=== PATIENT | female | born 1940 | race Caucasian/White ===

== ENCOUNTER → 2017-08-26 | Outpatient (CLI) | payer MEDICARE, OTHER ==
[~2017-08-26] MED LIST: ALL220TA PO; BUTA1CAP2 PO; CENTTAB9 PO; FLUO-1 PO; LISI-360 PO; MELA5TAB8 PO; OMEG600C2 PO; PENI500T PO; RANI150T PO; SUMA6P SQ; TEMA15 PO; TRAZ50TA78 PO
--- NOTE | 2017-08-30 10:29 | RSPPFT ---
DATE OF PROCEDURE: 08/26/17 COMMENTS: VOLUMES DYNAMIC: FVC and FEV1 normal. STATIC: TLC, FRC and RV normal. FLOWS: FEV1% and FEF 25-75 normal. DIFFUSION: Moderately reduced. FLOW VOLUME LOOP: Normal configuration. IMPRESSION: Low normal lung volumes, possibly a very mild restrictive defect but no significant airways obstruction and no improvement post-bronchodilator. There is a moderate reduction in diffusion. Clinical correlation is required.
== END ==
LOC: HRSP 09:10
PROVIDERS: ATTEND Internal Medicine
DX: J45.909 Unspecified asthma, uncomplicated (principal)
CPT/HCPCS: 94060; 94618; 94726; 94729; 95012

== ENCOUNTER 2017-12-31 03:42 | Observation (INO) ==
--- NOTE | 2017-12-31 03:53 | ED ---
HPI General Chief Complaint: Stroke Alert Stated Complaint: Stroke Alert Time Seen by Provider: 12/31/17 03:48 Source: patient and EMS Mode of arrival: EMS Limitations: no limitations History of Present Illness HPI narrative: 77-year-old female patient presents to the ER today brought in by EMS as a stroke alert, apparently was last seen normal at 10 PM, and woke up several times tonight, had appeared disoriented according to her , ataxic , slurred speech, word finding difficulties, hallucinations. She is complaining of a headache currently which is a 5 out of 10. She states she has history of previous migraine headaches. She states that she has not been feeling well, apparently is getting over gastroenteritis. She denies other issues. Related Data Home Medications Medication Instructions Recorded Confirmed aspirin [Aspir-81] 81 mg PO DAILY 12/31/17 12/31/17 atorvastatin [Lipitor] 10 mg PO DAILY 12/31/17 12/31/17 fluoxetine 80 mg PO DAILY 12/31/17 12/31/17 hydrochlorothiazide 12.5 mg PO DAILY 12/31/17 12/31/17 lisinopril 20 mg PO DAILY 12/31/17 12/31/17 Allergies Allergy/AdvReac Type Severity Reaction Status Date / Time Iodinated Contrast- Oral and Allergy Severe Anaphylaxis Unverified 12/29/16 14: 47 IV Dye Review of Systems ROS: all other systems reviewed are negative PMFSH History History Provided By: Patient Medical History Medical History HTN (hypertension) (Acute) History of hysterectomy (Acute) MRSA (methicillin resistant Staphylococcus aureus) (Acute) Migraine (Acute) UTI (urinary tract infection) (Acute) Surgical History Surgical History H/O mastectomy (Acute) Social History Social History Substance History: No History of Abuse Second Hand Smoke Exposure: No Smoking Status: Never smoker How Often Do You Have a Drink Containing Alcohol: 2 to 4 times a month Recent Travel in [facility] within the Last 8 Weeks: No Recent Out of Country Travel within the Last 8 Weeks: No Exam Narrative Exam Narrative: GENERAL: Well-developed elderly white female patient currently in mild distress. Awake and oriented 3. SKIN: Focused skin assessment warm/dry. HEAD: Atraumatic. Normocephalic. EYES: Pupils equal and round. No scleral icterus. No injection or drainage. ENT: No nasal bleeding or discharge. Mucous membranes pink and moist. NECK: Trachea midline. No JVD. CARDIOVASCULAR: Regular rate and rhythm. No murmur appreciated. RESPIRATORY: No accessory muscle use. Clear to auscultation. Breath sounds equal bilaterally. GASTROINTESTINAL: Abdomen soft, non-tender, nondistended. Hepatic and splenic margins not palpable. MUSCULOSKELETAL: No obvious deformities. No clubbing. No cyanosis. No edema. NEUROLOGICAL: Awake and alert. No obvious cranial nerve deficits. Motor grossly within normal limits. Normal speech. No pronator drift. PSYCHIATRIC: Appropriate mood and affect; insight and judgment normal. Course Initial Documented Vital Signs Pulse Rate 72 12/31/17 03:45 Respiratory Rate 20 12/31/17 03:45 Blood Pressure 183/86 H 12/31/17 03:45 Pulse Oximetry 98 12/31/17 03:45 Last Documented Vital Signs Pulse Rate 61 12/31/17 04:16 Respiratory Rate 18 12/31/17 04:16 Blood Pressure 154/67 H 12/31/17 04:16 Pulse Oximetry 100 12/31/17 04:16 NIH Stroke Scale NIHSS Time Completed NIHSS Time Completed: 03:50 NIH Stroke Scale Level of Consciousness: 0-Alert Orientation Questions: 0-Answers both correct Responds to Commands: 0-Both tasks correct Gaze Eye Movement: 0-Horizontal movement WNL Visual [place]: 0-No visual field defect Facial Movement: 0-Normal Motor Functions Arm LEFT: 0-No drift Motor Functions Arm RIGHT: 0-No drift Motor Functions Leg LEFT: 0-No drift Motor Functions Leg RIGHT: 0-No drift Limb Ataxia: 0-No ataxia Sensory Loss: 0-No sensory loss Best Language: 1-Mild aphasia Articulation: 0-Normal Extinction or Inattention Sensory: 0-Absent Total: 1 Medical Decision Making MDM Narrative Medical decision making narrative: Patient symptoms are cleared by the time she got to the ER. Her initial CAT scan was negative. She has a UTI and IV antibiotics were initiated in the ER. Aspirin was given in the ER after the case had been discussed with Dr. Magaña who agrees that she would not make a TPA candidate considering clearing of symptoms. In addition, her symptoms have began at 10 PM and by the time she got here and got the CAT scan, she was towards the end of the 6 hour window. She is allergic to contrast, and CTA of the head could not be done because of that, MRI was instead ordered for further evaluation. Case is discussed with Dr. Russ for admission. Medical Screen Exam Complete: Yes Emergency Medical Condition: Yes Differential Diagnosis Differential Diagnosis: CVA versus electrolyte abnormalities versus dehydration versus acute intracranial processes versus hypertensive urgency/emergency Lab Data Lab results reviewed: Yes I reviewed the patient's lab results. Result diagrams: 12/31/17 03:40 Lab Results 12/31/17 12/31/17 12/31/17 Range/Units 03:40 03:40 03:40 POC Hgb (Calc) 11.9 (11.6-15.3) g/dL POC Hct 35.0 (35-46.0) % PT 10.0 (9.8-11.6) sec INR 1.0 Ratio APTT 20.0 L (24.3-30.1) sec POC Sodium 141 (137-144) mmol/L Sodium 141 (136-145) meq/L POC Potassium 4.8 (3.6-5.0) mmol/L Potassium 4.6 (3.5-5.1) meq/L POC Chloride 103 (102-111) mmol/L Chloride 105 (98-107) meq/L Carbon Dioxide 32.1 H (21.0-32.0) meq/L Anion Gap 4 L (5-15) meq/L POC BUN 23 H (5-21) mg/dL BUN 20 H (7-18) mg/dL Creatinine 1.07 H (0.50-1.00) mg/dL POC Creatinine 1.0 (0.6-1.3) mg/dL Estimated GFR 50 L (>89) mL/min POC Glucose 96 (68-110) mg/dL Random Glucose 92 (74-106) mg/dL Calcium 8.5 (8.5-10.1) mg/dL Total Bilirubin 0.2 (0.2-1.0) mg/dL AST 29 (15-37) U/L ALT 29 (10-53) U/L Alkaline Phosphatase 51 (45-117) U/L Total Creatine Kinase 52 (26-192) U/L Troponin I Less than 0.02 L (0.02-0.05) ng/mL Total Protein 7.3 (6.4-8.2) g/dL Albumin 3.3 L (3.4-5.0) g/dL Urine Color (Yellw/Straw) Urine Clarity (Clear) Urine pH (5.0-8.5) Ur Specific [place] (1.002-1.035) Urine Protein (Neg-Trace) mg/dL Urine Glucose (UA) (Negative) mg/dL Urine Ketones (Negative) mg/dL Urine Occult Blood (Negative) Urine Nitrate (Negative) Urine Bilirubin (Negative) Urine Urobilinogen (Less than 2) mg/dL Ur Leukocyte Esterase (Negative) Urine RBC (0-3) /hpf Urine WBC (0-5) /hpf Ur Squamous Epith Cells (0-5) /hpf Micro UA Comment Urine Culture Comments Blood Type A Positive Blood Type Recheck Required Antibody Screen Negative 12/31/17 Range/Units 04:18 POC Hgb (Calc) (11.6-15.3) g/dL POC Hct (35-46.0) % PT (9.8-11.6) sec INR Ratio APTT (24.3-30.1) sec POC Sodium (137-144) mmol/L Sodium (136-145) meq/L POC Potassium (3.6-5.0) mmol/L Potassium (3.5-5.1) meq/L POC Chloride (102-111) mmol/L Chloride (98-107) meq/L Carbon Dioxide (21.0-32.0) meq/L Anion Gap (5-15) meq/L POC BUN (5-21) mg/dL BUN (7-18) mg/dL Creatinine (0.50-1.00) mg/dL POC Creatinine (0.6-1.3) mg/dL Estimated GFR (>89) mL/min POC Glucose (68-110) mg/dL Random Glucose (74-106) mg/dL Calcium (8.5-10.1) mg/dL Total Bilirubin (0.2-1.0) mg/dL AST (15-37) U/L ALT (10-53) U/L Alkaline Phosphatase (45-117) U/L Total Creatine Kinase (26-192) U/L Troponin I (0.02-0.05) ng/mL Total Protein (6.4-8.2) g/dL Albumin (3.4-5.0) g/dL Urine Color Straw (Yellw/Straw) Urine Clarity Clear (Clear) Urine pH 6.0 (5.0-8.5) Ur Specific [place] 1.006 (1.002-1.035) Urine Protein Negative (Neg-Trace) mg/dL Urine Glucose (UA) Negative (Negative) mg/dL Urine Ketones Negative (Negative) mg/dL Urine Occult Blood Small H (Negative) Urine Nitrate Negative (Negative) Urine Bilirubin Negative (Negative) Urine Urobilinogen Less than 2 (Less than 2) mg/dL Ur Leukocyte Esterase Moderate H (Negative) Urine RBC 2 (0-3) /hpf Urine WBC 22 H (0-5) /hpf Ur Squamous Epith Cells <1 (0-5) /hpf Micro UA Comment Culture indicated Urine Culture Comments Culture indicated Blood Type Blood Type Recheck Antibody Screen Imaging Data Attestation: I personally reviewed and interpreted this imaging study as follows : Radiologist's impression: Chest X-Ray 12/31/17 03:48 CONCLUSION: Mild cardiomegaly. Head CT 12/31/17 03:48 CONCLUSION: 1. No acute areas of hemorrhage or mass effect are seen. 2. Atrophy. 3. Suspected small vessel stomach change in the white matter. Report was called by Dr. Kramer to Dr. Osorio at 4:01 AM.] ECG Data Attestation: I personally reviewed and interpreted this ECG as follows: Interpretation: EKG shows normal sinus rhythm at a rate of 60 bpm with no signs of acute ST elevations or depressions. Discharge Plan Discharge Disposition Patient Disposition: 30 Still Patient Discharge Condition Condition: Stable Discharge Details Anticipated Discharge Date: 12/31/17 Diagnosis: Transient cerebral ischemia, UTI (urinary tract infection) Physicians Team ED Provider: Sunil Sellers Primary Care Provider: Eric Kline Attending Provider: Lauren Narvaez Discharge Interventions Interventions: Vital Signs Last Done: 12/31/17 04:16 Status ED Status: Admitted Observation Patient
[2017-12-31] MEDS ORDERED: Sod Chloride 0.9% Inj 1,000 ML IV.CONT SCH ×2 (04:00→05:00)
--- NOTE | 2017-12-31 04:05 | CT ---
EXAM DATE: 12/31/2017 3:58 AM EDT AGE/SEX: 77 years / Female INDICATIONS: Stroke alert, ataxia. CLINICAL DATA: This is the patient's initial encounter. Patient reports that signs and symptoms have been present for 1 day and indicates a pain score of 0/10. MEDICAL/SURGICAL HISTORY: None. None. RADIATION DOSE: 56.35 CTDI (mGy) COMPARISON: No prior exams available for comparison. TECHNIQUE: CT of the head without contrast. Using automated exposure control and adjustment of the mA and/or kV according to patient size, radiation dose was kept as low as reasonably achievable to ob tain optimal diagnostic quality images. DICOM format image data is available electronically for revi ew and comparison. FINDINGS: Cerebrum: The ventricles and cortical sulci are widened. There is diffuse decreased attenuation thro ughout the cerebral white matter. No evidence of midline shift, mass lesion, hemorrhage or acute inf arction. No extraaxial fluid collections are seen. Posterior Fossa: The cerebellum and brainstem are intact. The 4th ventricle is midline. The cerebe llopontine angle is unremarkable. Extracranial: The visualized portion of the orbits is intact. Skull: The calvaria is intact. No evidence of skull fracture. CONCLUSION: 1. No acute areas of hemorrhage or mass effect are seen. 2. Atrophy. 3. Suspected small vessel stomach change in the white matter. Report was called by Dr. Kramer to Dr. Osorio at 4:01 AM.] Electronically signed by: Ridge Kramer MD 12/31/2017 4:03 AM EDT
[2017-12-31 04:21] LABS: Alkaline Phosphatase 51 U/L (45-117); Total Protein 7.3 g/dL (6.4-8.2)
--- NOTE | 2017-12-31 04:27 | XR ---
EXAM DATE: 12/31/2017 4:19 AM EDT AGE/SEX: 77 years / Female INDICATIONS: Stroke Alert. CLINICAL DATA: This is the patient's initial encounter. Patient reports that signs and symptoms have been present for 1 day and indicates a pain score of 1/10. MEDICAL/SURGICAL HISTORY: Carcinoma, breast. Mastectomy, bilateral. Hysterectomy. COMPARISON: No prior exams available for comparison. FINDINGS: The heart size is mildly enlarged. The lungs are clear. No effusion is seen. CONCLUSION: Mild cardiomegaly. Electronically signed by: Ridge Kramer MD 12/31/2017 4:26 AM EDT
[2017-12-31] MEDS ORDERED: Aspirin 325 MG Tablet PO ONE (04:28)
[2017-12-31 04:30] LABS: Alanine Aminotransferase 29 U/L (10-53); Albumin 3.3 g/dL (3.4-5.0); Anion Gap 4 meq/L (5-15); Aspartate Aminotransferase 29 U/L (15-37); Blood Urea Nitrogen 20 mg/dL (7-18); Calcium 8.5 mg/dL (8.5-10.1); Carbon Dioxide 32.1 meq/L (21.0-32.0); Chloride 105 meq/L (98-107); Glomerular Filtration Rate 50 mL/min (>89); Glucose,Random 92 mg/dL (74-106); Potassium 4.6 meq/L (3.5-5.1); Sodium 141 meq/L (136-145)
[2017-12-31 04:36] LABS: Creatine Kinase 52 U/L (26-192)
[2017-12-31 04:38] LABS: Bilirubin,Urine Negative (Negative); Clarity,Urine Clear (Clear); Color,Urine Straw (Yellw/Straw); Glucose,Urine (UA) Negative (Negative); Leukocyte Esterase,Urine Moderate (Negative); Nitrite,Urine Negative (Negative); Specific Gravity,Urine 1.006 (1.002-1.035); Squamous Epithelial Cell,Urine <1 /hpf (0-5)
[2017-12-31] MEDS ORDERED: Dextrose 50% in Water 50 ML Vial IV.PUSH PRN (04:53)
[2017-12-31] MEDS: Insulin NovoLOG Aspart Correctional Sugar Inj SQ SCH ×2 (07:50→12:07)
[2017-12-31 08:02] VITALS: O2SAT 99
--- NOTE | 2017-12-31 10:31 | MR ---
EXAM DATE: 12/31/2017 10:18 AM EDT AGE/SEX: 77 years / Female INDICATIONS: Stroke. Slurred speech. CLINICAL DATA: This is the patient's initial encounter. Patient reports that signs and symptoms have been present for 1 day and indicates a pain score of 0/10. MEDICAL/SURGICAL HISTORY: Carcinoma, breast. Tonsillectomy. Mastectomy, bilateral. Hysterecto my. [place] [facility] [place]/2017. . TECHNIQUE: 3D [id number] MRA was performed. Source images, multiplanar STS MIP, and 3D volum e MIP reconstructions were reviewed. FINDINGS: There is excellent visualization of the major intracranial arteries out to the second-order branch ve ssels. There is no evidence for aneurysm, vessel truncation or stenosis, and no evidence for vascula r malformation. CONCLUSION: 1. Negative MRA [place] ([place] [facility] [place]) non contrast. Electronically signed by: Hoang Keenan MD 12/31/2017 10:30 AM EDT
--- NOTE | 2017-12-31 10:43 | MR ---
EXAM DATE: 12/31/2017 10:19 AM EDT AGE/SEX: 77 years / Female INDICATIONS: Stroke. Slurred speech. CLINICAL DATA: This is the patient's initial encounter. Patient reports that signs and symptoms have been present for 1 day and indicates a pain score of 0/10. MEDICAL/SURGICAL HISTORY: Carcinoma, breast. Mastectomy, bilateral. Hysterectomy. Tonsillecto my. COMPARISON: No prior exams available for comparison. TECHNIQUE: Multiplanar, multisequence examination of the brain was performed without contrast. FINDINGS: No recent infarct on the diffusion-weighted images. There is no mass effect or midline shift. No hydr ocephalus. There is moderate chronic ischemic changes in the periventricular white matter. Probable remote small infarct in the medial left cerebellar hemisphere. CONCLUSION: 1. No recent infarct identified. 2. Moderate chronic ischemic changes in periventricular white matter. Remote small infarct medial le ft cerebellar hemisphere. Electronically signed by: Uday Lord MD 12/31/2017 10:42 AM EDT
--- NOTE | 2017-12-31 11:07 | ECG ---
Date Performed: 12/31/2017 Time Performed: 03:48:31 PTAGE: 77 years EKG: Sinus rhythm NORMAL ECG PREVIOUS TRACING : 01/04/2013 12.11 Since the previous tracing, no significant change noted DOCTOR: Sergio Moore Interpretating Date/Time 12/31/2017 11:05:53
[2017-12-31 12:15] VITALS: BP 184/76; PULSE 70; RESP 20; TEMP 98.2
--- NOTE | 2017-12-31 13:58 | P.DS ---
Date of admission: 12/31/17 04:52 Primary care physician: Eric Kline MD Brief History from admission: Mrs. Fuller is a 77-year-old female. She is admitted secondary to bilateral arm weakness and difficulty speaking. Imaging is ordered to rule out etiology of CVA. When seen the patient has resolution of her symptoms. Urinary tract infection is discovered which may be a likely alternative etiology. No complaints of fever. No complaints of nausea vomiting. No complaints of headache. Recurrent urinary tract infections have been a problem recently. DS: Medications - Discharge Medications Prescriptions: Lactobacillus acidophilus 500 mmu cells PO TID #30 cap sulfamethoxazole-trimethoprim [Bactrim DS] 1 tab PO BID #12 tab DS: Summary Hospital Course: Mrs. Fuller is a 77-year-old female. She came in secondary to bilateral arm weakness and difficulty with movement. She also had difficulty speaking. Imaging of the brain including MRI and MRA showed no evidence of CVA. This patient was found to have urinary tract infection. She has had problems with urinary tract infections before in the past. In the past she has had encephalopathy and hallucinations. Etiology for her neurologic deficit is likely related to the UTI. Urinary tract infection treatments are initiated in here. By this morning she has resolution of her symptoms. She is able to ambulate without weakness. She is medically clear and stable for discharge home on oral antibiotics at this time. - Time Spent with Patient Total time spent providing and/or coordinating discharge services: Less than 30 minutes - Quality: Stroke Last date observed well: 12/30/17 Last time observed well: 22:00 - Quality: VTE Deep Vein Thrombosis/Pulmonary Embolism Present on Admission: No Exam Vital signs: Vital Signs 12/31/17 03:45 12/31/17 03:46 12/31/17 03:49 Temperature Pulse Rate 72 72 Respiratory Rate 20 20 Blood Pressure 183/86 H 183/86 H Pulse Oximetry 98 98 98 12/31/17 03:56 12/31/17 04:00 12/31/17 04:09 Temperature Pulse Rate 73 57 L Respiratory Rate 18 Blood Pressure 147/72 H 179/75 H Pulse Oximetry 99 99 100 12/31/17 04:16 12/31/17 07:00 12/31/17 07:05 Temperature 97.8 F Pulse Rate 61 64 64 Respiratory Rate 18 16 Blood Pressure 154/67 H 149/69 H Pulse Oximetry 100 99 98 12/31/17 07:40 12/31/17 12:13 Temperature 97.9 F 98.2 F Pulse Rate 67 70 Respiratory Rate 16 20 Blood Pressure 142/71 H 184/76 H Pulse Oximetry 99 Intake & Output 12/30/17 12/31/17 12/31/17 18:59 06:59 18:59 Intake Total 100 / 100 Output Total 400 / 400 Balance 100 / 100 -400 / -400 Weight 78.1 kg Intake: IV 100 / 100 Rocephin Inj 1,000 MG In NS Inj 100 / 100 100 ML @ 200 mls/hr IV.SIG ONCE ONE Rx#:[id number] Output: Urine 400 / 400 Other: # Voids 1 Results Procedures completed during hospitalization: None Labs on day of discharge: Labs from last 24 hours 12/31/17 12/31/17 12/31/17 12:05 07:06 04:18 POC Hgb (Calc) POC Hct PT INR APTT POC Sodium Sodium POC Potassium Potassium POC Chloride Chloride Carbon Dioxide Anion Gap POC BUN BUN Creatinine POC Creatinine Estimated GFR POC Glucose 84 121 H Random Glucose Calcium Total Bilirubin AST ALT Alkaline Phosphatase Total Creatine Kinase Troponin I Total Protein Albumin Urine Color Straw Urine Clarity Clear Urine pH 6.0 Ur Specific [place] 1.006 Urine Protein Negative Urine Glucose (UA) Negative Urine Ketones Negative Urine Occult Blood Small H Urine Nitrate Negative Urine Bilirubin Negative Urine Urobilinogen Less than 2 Ur Leukocyte Esterase Moderate H Urine RBC 2 Urine WBC 22 H Ur Squamous Epith Cells <1 Micro UA Comment Culture indicated Urine Culture Comments Culture indicated Blood Type Blood Type Recheck Antibody Screen 12/31/17 12/31/17 12/31/17 03:40 03:40 03:40 POC Hgb (Calc) 11.9 POC Hct 35.0 PT 10.0 INR 1.0 APTT 20.0 L POC Sodium 141 Sodium 141 POC Potassium 4.8 Potassium 4.6 POC Chloride 103 Chloride 105 Carbon Dioxide 32.1 H Anion Gap 4 L POC BUN 23 H BUN 20 H Creatinine 1.07 H POC Creatinine 1.0 Estimated GFR 50 L POC Glucose 96 Random Glucose 92 Calcium 8.5 Total Bilirubin 0.2 AST 29 ALT 29 Alkaline Phosphatase 51 Total Creatine Kinase 52 Troponin I Less than 0.02 L Total Protein 7.3 Albumin 3.3 L Urine Color Urine Clarity Urine pH Ur Specific [place] Urine Protein Urine Glucose (UA) Urine Ketones Urine Occult Blood Urine Nitrate Urine Bilirubin Urine Urobilinogen Ur Leukocyte Esterase Urine RBC Urine WBC Ur Squamous Epith Cells Micro UA Comment Urine Culture Comments Blood Type A Positive Blood Type Recheck Required Antibody Screen Negative - Impressions ITS Impressions Chest X-Ray 12/31/17 03:48 CONCLUSION: Mild cardiomegaly. Head CT 12/31/17 03:48 CONCLUSION: 1. No acute areas of hemorrhage or mass effect are seen. 2. Atrophy. 3. Suspected small vessel stomach change in the white matter. Report was called by Dr. Kramer to Dr. Osorio at 4:01 AM.] Head MRI 12/31/17 04:55 CONCLUSION: 1. No recent infarct identified. 2. Moderate chronic ischemic changes in periventricular white matter. Remote small infarct medial left cerebellar hemisphere. Head MRA 12/31/17 04:55 CONCLUSION: 1. Negative MRA [place] ([place] [facility] [place]) non contrast. Discharge Plan - Discharge Disposition Patient Disposition: 01 Discharge Home - Discharge Condition Condition: Stable - Discharge Order Discharge Orders: Discharge Order (Routine); Ordered 12/31/17 Ordered By: Hoang Freeman - Discharge Details Anticipated Discharge Date: 12/31/17 - Physicians Team Primary Care Provider: Eric Kline Attending Provider: Hoang Freeman Other Providers: Chato Westbrook MD, PhD
--- NOTE | 2017-12-31 14:06 | P.HPIM ---
History of Present Illness Primary Care Physician: Eric Kline MD History of Present Illness: Mrs. Fuller is a 77-year-old female. She is admitted secondary to bilateral arm weakness and difficulty speaking. Imaging is ordered to rule out etiology of CVA. When seen the patient has resolution of her symptoms. Urinary tract infection is discovered which may be a likely alternative etiology. No complaints of fever. No complaints of nausea vomiting. No complaints of headache. Recurrent urinary tract infections have been a problem recently. Review of Systems All other systems reviewed negative except as stated in HPI PMFSH - History History Provided By: Patient, Family Member - Medical History Medical History: Medical History (Last Reviewed 12/31/17 @ 10:56 by Gila Davis RN) HTN (hypertension) History of hysterectomy MRSA (methicillin resistant Staphylococcus aureus) Migraine UTI (urinary tract infection) - Surgical History Surgical History: Surgical History (Last Reviewed 12/31/17 @ 10:56 by Gila Davis RN) H/O mastectomy - Family History Family History: Family History (Last Updated 12/31/17 @ 13:59 by Hoang Freeman MD) Other CVA (cerebral vascular accident) - Tobacco History Second Hand Smoke Exposure: Yes Tobacco Use In Past 30 Days: No Smoking Status: Never smoker - Alcohol History How Often Do You Have a Drink Containing Alcohol: 2 to 3 times a week - Substance Use History Substance History: No History of Abuse - Travel History Recent Travel in the [place] Within the Last 8 Weeks: No Recent Travel Out of the Country Within the Last 8 Weeks: No - Immunization History Tetanus Immunization: >5 Years Hx Influenza Vaccine This Season: No Medications and Allergies Active Medications: Active Medications Aspirin (Aspirin) 325 mg PO DAILY [facility] Dextrose (D50w Vial) 50 ml IV.PUSH UNSCH PRN PRN Reason: PER HYPOGLYCEMIA PROTOCOL Enalaprilat (Vasotec Inj) 1.25 mg IV.PUSH Q4H PRN PRN Reason: For SBP > 220 or DBP > 120 Glucagon (Glucagon Inj) 1 mg OTHER UNSCH PRN PRN Reason: for Hypoglycemia Protocol Sodium Chloride (Ns Inj) 1,000 mls @ 70 mls/hr IV.CONT .[id number] [facility] Stop: 12/31/17 18:17 Last Infusion: 12/31/17 06:36 Dose: 70 mls/hr Ceftriaxone Sodium 1,000 mg/ (Sodium Chloride) 100 mls @ 200 mls/hr IV.SIG Q24H [facility] Sodium Chloride (Ns Inj) 1,000 mls @ 70 mls/hr IV.CONT .[id number] [facility] Last Admin: 12/31/17 06:35 Dose: 70 mls/hr Insulin Aspart (Novolog Insulin Correctional Sugar Inj) 0 unit SQ ACHS [facility]; Protocol Last Admin: 12/31/17 12:07 Dose: Not Given Sodium Chloride (Ns Flush) 2 ml IV.FLUSH PRN PRN PRN Reason: FLUSH AFTER USING IV ACCESS Sodium Chloride (Ns Flush) 2 ml IV.FLUSH BID [facility] Last Admin: 12/31/17 08:44 Dose: Not Given Sodium Chloride (Ns Flush) 2 ml IV.FLUSH PRN PRN PRN Reason: FLUSH AFTER USING IV ACCESS Allergies Allergy/AdvReac Type Severity Reaction Status Date / Time Iodinated Contrast- Oral and Allergy Severe Anaphylaxis Verified 12/31/17 07:07 IV Dye Home Medications Medication Instructions Recorded Confirmed Type aspirin [Aspir-81] 81 mg PO DAILY 12/31/17 12/31/17 History atorvastatin [Lipitor] 10 mg PO DAILY 12/31/17 12/31/17 History fluoxetine 80 mg PO DAILY 12/31/17 12/31/17 History hydrochlorothiazide 12.5 mg PO DAILY 12/31/17 12/31/17 History lisinopril 20 mg PO DAILY 12/31/17 12/31/17 History Exam Vital signs: Vital Signs 12/31/17 03:45 12/31/17 03:46 12/31/17 03:49 Temperature Pulse Rate 72 72 Respiratory Rate 20 20 Blood Pressure 183/86 H 183/86 H Pulse Oximetry 98 98 98 12/31/17 03:56 12/31/17 04:00 12/31/17 04:09 Temperature Pulse Rate 73 57 L Respiratory Rate 18 Blood Pressure 147/72 H 179/75 H Pulse Oximetry 99 99 100 12/31/17 04:16 12/31/17 07:00 12/31/17 07:05 Temperature 97.8 F Pulse Rate 61 64 64 Respiratory Rate 18 16 Blood Pressure 154/67 H 149/69 H Pulse Oximetry 100 99 98 12/31/17 07:40 12/31/17 12:13 Temperature 97.9 F 98.2 F Pulse Rate 67 70 Respiratory Rate 16 20 Blood Pressure 142/71 H 184/76 H Pulse Oximetry 99 Intake & Output 12/30/17 12/31/17 12/31/17 18:59 06:59 18:59 Intake Total 100 / 100 Output Total 400 / 400 Balance 100 / 100 -400 / -400 Weight 78.1 kg Intake: IV 100 / 100 Rocephin Inj 1,000 MG In NS Inj 100 / 100 100 ML @ 200 mls/hr IV.SIG ONCE ONE Rx#:[id number] Output: Urine 400 / 400 Other: # Voids 1 Narrative: GENERAL: NAD, A&Ox3 HEAD: Normocephalic. NECK: Supple, trachea midline. No lymphadenopathy. EYES: No scleral icterus. No injection or drainage. CARDIOVASCULAR: Regular rate and rhythm without murmurs, gallops, or rubs. RESPIRATORY: Breath sounds equal bilaterally. No accessory muscle use. GASTROINTESTINAL: Abdomen soft, non-tender, nondistended. MUSCULOSKELETAL: No cyanosis, or edema. SKIN: Warm and dry. NEURO: No focal neurological deficits. Results - Labs CBC & Chem 7: 12/31/17 03:40 Labs: BMP 12/31/17 03:40 Sodium 141 Potassium 4.6 Chloride 105 Carbon Dioxide 32.1 H BUN 20 H Creatinine 1.07 H Calcium 8.5 Cardiac Enzymes 12/31/17 Range/Units 03:40 Total Creatine Kinase 52 (26-192) U/L Troponin I Less than 0.02 L (0.02-0.05) ng/mL Liver Function 12/31/17 Range/Units 03:40 Total Bilirubin 0.2 (0.2-1.0) mg/dL AST 29 (15-37) U/L ALT 29 (10-53) U/L Alkaline Phosphatase 51 (45-117) U/L Albumin 3.3 L (3.4-5.0) g/dL Urine 12/31/17 Range/Units 04:18 Urine Color Straw (Yellw/Straw) Urine Clarity Clear (Clear) Urine pH 6.0 (5.0-8.5) Ur Specific [place] 1.006 (1.002-1.035) Urine Protein Negative (Neg-Trace) mg/dL Urine Glucose (UA) Negative (Negative) mg/dL - Imaging Impressions Chest X-Ray 12/31/17 03:48 CONCLUSION: Mild cardiomegaly. Head CT 12/31/17 03:48 CONCLUSION: 1. No acute areas of hemorrhage or mass effect are seen. 2. Atrophy. 3. Suspected small vessel stomach change in the white matter. Report was called by Dr. Kramer to Dr. Osorio at 4:01 AM.] Head MRI 12/31/17 04:55 CONCLUSION: 1. No recent infarct identified. 2. Moderate chronic ischemic changes in periventricular white matter. Remote small infarct medial left cerebellar hemisphere. Head MRA 12/31/17 04:55 CONCLUSION: 1. Negative MRA [place] ([place]) non contrast. Caprini VTE Risk Assessment Caprini VTE Risk Assessment: No/Low Risk (score <= 1) Caprini Risk Assessment Model: Point Value = 1 Point Value = 2 Point Value = 3 Point Value = 5 Age 41-60 Minor surgery BMI > 25 kg/m2 Swollen legs Varicose veins or History of unexplained or recurrent spontaneous Oral contraceptives or hormone replacement Sepsis (< 1 month) Serious lung disease, including pneumonia (< 1 month) Abnormal pulmonary function Acute myocardial infarction Congestive heart failure (< 1 month) History of inflammatory bowel disease Medical patient at bed rest Age 61-74 Arthroscopic surgery Major open surgery (> 45 min) Laparoscopic surgery (> 45 min) Malignancy Confined to bed (> 72 hours) Immobilizing plaster cast Central venous access Age >= 75 History of VTE Family history of VTE Factor V Leiden Prothrombin [id number] Lupus anticoagulant Anticardiolipin antibodies Elevated serum homocysteine Heparin-induced thrombocytopenia Other congenital or acquired thrombophilia Stroke (< 1 month) Elective arthroplasty Hip, pelvis, or leg fracture Acute spinal cord injury (< 1 month) Prophylaxis Regimen: Total Risk Factor Score Risk Level Prophylaxis Regimen 0-1 Low Early ambulation 2 Moderate Order ONE of the following: *Sequential Compression Device (SCD) *Heparin 5000 units SQ BID 3-4 Higher Order ONE of the following medications: *Heparin 5000 units SQ TID *Enoxaparin/Lovenox 40 mg SQ daily (WT < 150 kg, CrCl > 30 mL/min) *Enoxaparin/Lovenox 30 mg SQ daily (WT < 150 kg, CrCl > 10-29 mL/min) *Enoxaparin/Lovenox 30 mg SQ BID (WT < 150 kg, CrCl > 30 mL/min) AND/OR *Sequential Compression Device (SCD) 5 or more Highest Order ONE of the following medications: *Heparin 5000 units SQ TID (Preferred with Epidurals) *Enoxaparin/Lovenox 40 mg SQ daily (WT < 150 kg, CrCl > 30 mL/min) *Enoxaparin/Lovenox 30 mg SQ daily (WT < 150 kg, CrCl > 10-29 mL/min) *Enoxaparin/Lovenox 30 mg SQ BID (WT < 150 kg, CrCl > 30 mL/min) AND *Sequential Compression Device (SCD) Assessment and Plan - Plan 77-year-old female admitted secondary to urinary tract infection with neurological symptoms including dysarthria and bilateral arm weakness Dysarthria Bilateral arm weakness MRI and MRA ordered Follow neurological status Treat urinary tract infection Urinary tract infection Recurrent UTIs Continue Rocephin Plan to change to Bactrim at discharge Probiotics Hypertension Continue baseline treatment Follow blood pressures Adjust treatments as needed DVT prophylaxis SCDs H&P: Quality - VTE Deep Vein Thrombosis/Pulmonary Embolism Present on Admission: No
[2018-01-01] MEDS ORDERED: Aspirin 325 MG Tablet PO SCH (09:00)
== END 2017-12-31 15:40 | disposition home or self-care (01) ==
LOC: NEDA 03:42 → NEPE 03:42 → NEPGCP 03:42
PROVIDERS: ADMIT Hospitalist; ATTEND Hospitalist
DX: Z90.710 Acquired absence of both cervix and uterus; I63.9 Cerebral infarction, unspecified; Z82.3 Family history of stroke; N39.0 Urinary tract infection, site not specified; I11.9 Hypertensive heart disease without heart failure; G43.909 Migraine, unspecified, not intractable, without status migrainosus